=== PATIENT | male | born 1955 | race African-American/Black ===

== ENCOUNTER 2020-12-02 18:24 | Emergency (ER) | payer MEDICAID ==
[~2020-12-02] VITALS: Ht 175.3 cm; Wt 94.0 kg
[2020-12-02 21:32] LABS: BASOPHILS % 0.5 % (0.0-2.0); EOSINOPHILS % 1.2 % (0.0-5.0); HEMATOCRIT. 40.7 % (42.0-52.0); HEMOGLOBIN. 13.2 g/dL (14.0-18.0); LYMPHOCYTES % 33.2 % (20.0-50.0); MEAN CORPUSCULAR HEMOGLOBIN 22.8 pg (28.0-32.0); MEAN CORPUSCULAR VOLUME 70.2 fL (80.0-94.0); MEAN PLATELET VOLUME 8.2 fl (7.4-10.4); MONOCYTES % 10.6 % (2.0-8.0); NEUTROPHILS % 54.5 % (40.0-76.0); PLATELET 184 x1000/uL (130-400); RED BLOOD CELL COUNT 5.79 mill/uL (4.7-6.1); RED CELL DISTRIBUTION WIDTH 15.3 % (11.6-14.6)
[2020-12-02 21:43] LABS: CHLORIDE 105 mEq/L (98-107)
[2020-12-02 22:30] VITALS: BP 155/99
[2020-12-02] MEDS ORDERED: AMLODIPINE 2.5MG TABLET PO ONE (22:30)
== END 2020-12-02 22:42 | disposition home or self-care (01) ==
LOC: ER 18:24
DX: I10 Essential (primary) hypertension (principal); R42 Dizziness and giddiness; Z98.890 Other specified postprocedural states; Z86.73 Personal history of transient ischemic attack (TIA), and cerebral infarction without residual deficits
CPT/HCPCS: 36415; 71045; 80053; 83880; 84484; 85025; 93005; 99285